=== PATIENT | female | born 1975 | race Asian ===

== ENCOUNTER → 2016-11-11 | Outpatient (CLI) | payer OTHER ==
[~2016-11-11] MED LIST: DIPH25CA61 PO; EMERGEN C PO; None at this time
== END | disposition home or self-care (01) ==
LOC: CFH 12:38
PROVIDERS: ATTEND Surgery
DX: R92.2 Inconclusive mammogram (principal); Z80.3 Family history of malignant neoplasm of breast
CPT/HCPCS: 76642

== ENCOUNTER → 2017-04-25 | Outpatient (CLI) | payer OTHER | LOC: MERGE 14:25 → CFH 14:25 | PROVIDERS: ATTEND Internal Medicine Cardiovascular Disease | DX: I34.8 Other nonrheumatic mitral valve disorders (principal) | CPT/HCPCS: 93306 ==

== ENCOUNTER → 2017-11-15 | Outpatient (CLI) | payer OTHER ==
[~2017-11-15] MED LIST changes: +IBUP-1222 PO
== END | disposition home or self-care (01) ==
LOC: CFH 08:14
PROVIDERS: ATTEND Surgery
DX: Z12.31 Encounter for screening mammogram for malignant neoplasm of breast (principal); Z80.3 Family history of malignant neoplasm of breast; R92.1 Mammographic calcification found on diagnostic imaging of breast
CPT/HCPCS: 76377; 76642; 77063; 77067

== ENCOUNTER 2018-05-11 09:42 | Outpatient (CLI) | payer OTHER ==
[2018-05-11] MEDS ORDERED: GADOBUTROL 7.5 MMOL/7.5 ML VIAL ONE (13:33)
== END 2018-05-11 23:59 | disposition home or self-care (01) ==
LOC: CFH 09:42
PROVIDERS: ATTEND Surgery
DX: R92.2 Inconclusive mammogram (principal); N64.59 Other signs and symptoms in breast
CPT/HCPCS: 77049; A9585

== ENCOUNTER 2018-11-16 10:04 | Outpatient (CLI) | payer OTHER | END 2018-11-16 23:59 | disposition home or self-care (01) | LOC: CFH 10:04 | PROVIDERS: ATTEND Surgery | DX: Z12.31 Encounter for screening mammogram for malignant neoplasm of breast (principal); N64.89 Other specified disorders of breast | CPT/HCPCS: 77063; 77067 ==